=== PATIENT | female | born 1990 | race Caucasian/White ===

== ENCOUNTER 2018-12-03 22:33 | Emergency (ER) | payer OTHER ==
[2018-12-03 22:40] VITALS: BP 125/79
[2018-12-03] MEDS ORDERED: ACETAMINOPHEN 325 MG TABLET PO STA (22:45)
[2018-12-03] MEDS ORDERED: IBUPROFEN 600 MG TABLET PO STA (22:45)
--- NOTE | 2018-12-03 23:49 | ED Physician Documentation ---
PD HPI LOWER EXT INJURY - Stated complaint Stated Complaint: LEFT TOE PX - Chief complaint Chief Complaint: Trauma Ext - History obtained from History obtained from: Patient - History of Present Illness PD HPI LOW EXT INJURY LOCATION: Left, Toe (little) Type of injury: Blunt / blow (she struck her little toe, bending it, and it felt a snap. Hurts for movement. Concerned about fracture.) Where injury occurred: Home Timing - onset: How many hours ago (1-2), Today Timing - duration: Hours Timing - details: Abrupt onset, Still present Improved by: No: Rest Worsened by: Moving, Palpating Associated symptoms: Swelling. No: Weakness, Numbness, Discolored Recently seen: Not recently seen Review of Systems Constitutional: reports: Fever, Chills, Myalgias Neurologic: denies: Focal weakness, Numbness PD PAST MEDICAL HISTORY - Past Medical History Past Medical History: No Musculoskeletal: None - Past Surgical History Past Surgical History: Yes General: Hiatal hernia repair HEENT: Tonsil/Adenoidectomy - Present Medications Home Medications: Ambulatory Orders Medication Instructions Recorded Confirmed No Known Home Medications 12/03/18 12/03/18 - Allergies Allergies/Adverse Reactions: Allergies Allergy/AdvReac Type Severity Reaction Status Date / Time No Known Drug Allergies Allergy Verified 12/03/18 22:37 - Social History Does the pt smoke?: No Smoking Status: Never smoker Does the pt drink ETOH?: No Does the pt have substance abuse?: No - Immunizations Immunizations are current?: Yes - POLST Patient has POLST: No PD ED PE NORMAL - Vitals Vital signs reviewed: Yes - General General: Alert and oriented X 3, No acute distress, Well developed/nourished - Derm Derm: Normal color, Warm and dry - Extremities Extremities: Other (left little toe tender at MTP area with some swelling. No ecchymosis. Appears normal shape. Good cap refill in tip. ) - Neuro Neuro: No motor deficit, No sensory deficit Results - Vitals Vitals: Vital Signs - 24 hr 12/03/18 22:37 Temperature 36.6 C Heart Rate 92 Respiratory 16 Rate Blood Pressure 125/79 O2 Saturation 98 Oxygen O2 Source Room air - Rads (name of study) left little toe Radiology: Prelim report reviewed (no fractures), See rad report PD MEDICAL DECISION MAKING - ED course Complexity details: reviewed results, considered differential, d/w patient Departure - Departure Disposition: 01 Home, Self Care Clinical Impression: Toe sprain Qualifiers: Encounter type: initial encounter Qualified Code(s): S93.509A - Unspecified sprain of unspecified toe(s), initial encounter Condition: Stable Record reviewed to determine appropriate education?: Yes Instructions: ED Sprain Toe Comments: I do not see any fractures on your x-ray. This is good and that a sprain of the toe will hurt much less in time than a fracture. You can chico tape and firm soled shoe for the toe for the next several days as needed for discomfort. He can still hurt for several days to week or so. Use some anti-inflammatories such as ibuprofen or naproxen 2-3 times a day. I would anticipate being able to progress to normal activity over a week or so. Forms: Activity restrictions Discharge Date/Time: 12/04/18 00:00
--- NOTE | 2018-12-04 00:15 | XRAY Report ---
Reason: little toe injury this evening Procedure Date: 12/03/2018 Accession Number: [id number] / [id number] Procedure: XR - Toe(s) LT CPT Code: FULL RESULT: EXAM: LEFT TOES RADIOGRAPHY EXAM DATE: 12/03/2018 11:00 PM. CLINICAL HISTORY: Little toe injury this evening. COMPARISON: None. TECHNIQUE: 3 views. FINDINGS: Bones: No acute displaced fractures or suspicious bony lesion. Joints: No dislocation. There is mild to moderate first MTP degenerative joint disease. Soft Tissues: No significant soft tissue swelling. IMPRESSION: No acute osseous abnormality demonstrated. RADIA
== END 2018-12-04 | disposition home or self-care (01) ==
LOC: ED 22:33
DX: S93.515A Sprain of interphalangeal joint of left lesser toe(s), initial encounter (principal); W22.8XXA Striking against or struck by other objects, initial encounter; Y92.009 Unspecified place in unspecified non-institutional (private) residence as the place of occurrence of the external cause
CPT/HCPCS: 73660; 99282; 99283; A9270

== ENCOUNTER 2019-02-07 09:45 | Outpatient (CLI) | payer OTHER ==
--- NOTE | 2019-02-07 18:32 | MRI Report ---
Reason: LOW BACK PAIN Procedure Date: 02/07/2019 Accession Number: [id number] / [id number] Procedure: MRI - Lumbar Spine W/O CPT Code: Final Report FULL RESULT: EXAM: MRI LUMBAR SPINE WITHOUT CONTRAST EXAM DATE: 02/07/2019 10:30 AM. CLINICAL HISTORY: Left leg radiculopathy. Right leg numbness. Bending injury 2016. COMPARISON: None. TECHNIQUE: Multiplanar, multisequence T1-weighted and fluid-sensitive sequences of the lumbar spine from T12 to S1 without contrast. Other: None. FINDINGS: Spinal Canal: The conus terminates at T12-L1. The conus medullaris and cauda equina are unremarkable. Alignment: No scoliosis or spondylolisthesis. Bone Marrow: Five [id number] lumbar vertebral bodies are assumed. There is Modic type I change at the L5-S1 level. Disk Levels/Facets: T12-L1: Unremarkable. L1-L2: Unremarkable. L2-L3: Unremarkable. L3-L4: Unremarkable. L4-L5: Unremarkable. L5-S1: There is mild disk desiccation and loss of disk height. There is minimal canal and left foraminal narrowing. The right neural foramen is patent.. Musculature: Normal. No edema or fatty atrophy. Other: The partially visualized retroperitoneum is unremarkable. IMPRESSION: 1. Minimal degenerative change at L5-S1 with minimal canal and left foraminal narrowing Comment: The following findings are so common in adults without low back pain that while we report their presence, they must be interpreted with caution and in the context of the clinical situation. (Reference Mayelavik et al, Spine 2001) Prevalence of findings in patients without low back pain: Disk degeneration (any evidence): 92% Disk desiccation/T2 signal loss: 83% Disk height loss: 56% Disk bulge: 64% Disk protrusion: 32% Annular tear/high intensity zone: 38% RADIA
== END 2019-02-07 09:46 | disposition home or self-care (01) ==
LOC: DI 09:45
DX: M51.37 Other intervertebral disc degeneration, lumbosacral region (principal)
CPT/HCPCS: 72148